=== PATIENT | female | born 1985 | race Asian ===

== ENCOUNTER → 2018-04-28 | Outpatient (CLI) | payer OTHER ==
[~2018-04-28] MED LIST: ACE3 PO; Benzocaine 60 ML TP; DOCU240C67 PO; IBU600 PO; IBUP800T37 PO; Lanolin TP; PREN-127 PO; TUCKS TP
--- NOTE | 2018-04-28 16:23 | RADIOLOGY IMAGING REPORT ---
FACILITY: [facility] PATIENT NAME: Grace Falk : 1985 MR: [id number] V: [id number] EXAM DATE: ORDERING PHYSICIAN: MERY BLANCA TECHNOLOGIST: Location: [facility] Patient: Grace Falk : 1985 Visit/Account:[id number] Date of Sevice: 04/28/2018 Technique: CHEST PA AND LAT HISTORY: Positive PPD COMPARISON: None available Findings: The lungs are clear. No pleural effusion or pneumothorax. The cardiomediastinal silhouett e is normal. Impression: 1. No acute cardiopulmonary process. Report Dictated By: Jefferson Cobos DO at 04/28/2018 4:18 PM Report E-Signed By: Jefferson Cobos DO at 04/28/2018 4:20 PM WSN:[id number]
== END ==
LOC: RAD 15:52
PROVIDERS: ATTEND Pediatrics Adolescent Medicine
DX: R76.11 Nonspecific reaction to tuberculin skin test without active tuberculosis (principal)
CPT/HCPCS: 71046